=== PATIENT | female | born 2000 | race Caucasian/White ===

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

== ENCOUNTER 2022-11-20 09:04 | Day surgery (SDC) | payer MEDICAID ==
[2022-11-20 09:22] LABS: HCG URINE TEST NEGATIVE (NEGATIVE)
[2022-11-20] MEDS ORDERED: CEFAZOLIN 2 GM-D5W BAG** 2 GM/50 ML ML IV SCH (09:30)
[2022-11-20] MEDS ORDERED: Lactated Ringers 1,000 ML IV SCH (09:30)
[2022-11-20 09:31] VITALS: BP 107/68; PULSE 72; O2SAT 100
[2022-11-20] MEDS ORDERED: Lactated Ringers 1,000 ML IV ONE (09:35)
[2022-11-20] MEDS ORDERED: CEFAZOLIN 2 GM-D5W BAG** 2 GM/50 ML ML IV ONE (09:35)
[2022-11-20] MEDS ORDERED: Xylocaine-Mpf 2% 5 Ml Vial ONE (11:29)
[2022-11-20] MEDS ORDERED: Decadron 4 MG INJ ONE (11:29)
[2022-11-20] MEDS ORDERED: Zofran 4 MG/2 ML VIAL ONE (11:29)
[2022-11-20] MEDS ORDERED: DIPRIVAN 200 MG/20 ML IV ONE (11:30)
[2022-11-20] MEDS ORDERED: Versed 2 MG/2 ML Injection ONE (11:30)
[2022-11-20] MEDS ORDERED: SUBLIMAZE 100 MCG/2 ML ONE (11:30)
[2022-11-20] MEDS ORDERED: DEXMEDETOMIDINE 80 MCG/20ML-NS IV ONE (11:33)
== END 2022-11-20 12:15 | disposition home or self-care (01) ==
LOC: SDC 09:04
PROVIDERS: ATTEND Obstetrics & Gynecology
DX: Z53.8 Procedure and treatment not carried out for other reasons (principal)
CPT/HCPCS: 81025; J0690; J1100; J2250; J2405; J2704; J3010

== ENCOUNTER 2023-11-28 17:46 | Emergency (ER) | payer BC, MEDICAID ==
[2023-11-28 18:03] VITALS: TEMP 98.9; O2SAT 97
[2023-11-28 18:15] LABS: BASOPHIL % 0.3 % (0.0-0.4); Basophil (Absolute #) 0.04 x10^3/uL (0-0.4); Eosinophil % 0.1 % (0.00-5.0); Eosinophil (Absolute #) 0.01 x10^3/uL (0-0.5); Hematocrit 41.3 % (35-47); Hemoglobin 14.2 g/dL (12.0-16.0); IMMATURE GRAN # 0.05 x10^3u/L (0.00-0.03); IMMATURE GRAN % 0.3 % (0.00-0.4); Lymphocyte (Absolute #) 1.16 x10^3/uL (1.0-4.6); Lymphocytes % 7.9 % (24.0-44.0); Mean Cell Volume 90.8 fL (78-100); Mean Corpuscular Hemoglobin 31.2 pg (26-32); Mean Corpuscular Hgb Concent. 34.4 g/dL (32-36); Mean Platelet Volume 11.6 fL (7.5-11.0); Monocyte (Absolute #) 0.79 x10^3/uL (0.0-1.3); Monocytes % 5.4 % (0.0-12.0); Platelet Count 413 x10^3/uL (150-450); Red Blood Count 4.55 x10^6/uL (4.1-5.4); Red Cell Distribution Width 11.9 % (11.5-14.0); White Blood Count 14.8 x10^3/uL (4.0-10.5)
[2023-11-28 18:16] LABS: HCG URINE TEST NEGATIVE (NEGATIVE)
[2023-11-28] MEDS ORDERED: Zofran 4 MG/2 ML VIAL ONE (18:18)
[2023-11-28] MEDS ORDERED: Sodium Chloride 0.9% 1000 ML 1,000 ML ONE (18:18)
[2023-11-28] MEDS ORDERED: Pepcid 20 MG VIAL IV ONE (18:18)
--- NOTE | 2023-11-28 18:20 | ERPHSYRPT ---
- History of Present Illness Time Seen by Provider: 11/28/23 17:51 Historian: patient Exam Limitations: no limitations Patient Subjective Stated Complaint: Vomiting Triage Nursing Assessment: Patient ambulated back to ED and transferred self to bed. Patient A+O X3. Patient's skin pink, warm and dry. Patient complains of N/V and abdominal pain on and off since this past saturday. Patient currently denies pain, but states the pain gets worse when she eats of drinks anything. Abdomen soft and round with BS X 4. Physician History: 23-year-old female presented in the ER with complaint of off-and-on abdominal pain with nausea vomiting for the last 3 days. Patient reports multiple episodes of nonprojectile, nonbilious vomiting with no hematemesis. Reports associated epigastric and right upper quadrant pain. Concerned about her gallbladder issues which she had in the past. Patient denies any fever or chills. Not able to hold much down and feels weak fatigued tired and dehydrated. Does report smoking/vaping marijuana Allergies/Adverse Reactions: Latex, Natural Rubber Allergy (Mild, Verified 11/28/23 17:54) Hives and itching Hx Influenza Vaccination/Date Given: No Hx Pneumococcal Vaccination/Date Given: No Immunizations Up to Date: Yes Travel Risk - International Travel Have you traveled outside of the country in past 3 weeks: No - Emerging Infectious Disease Are you exhibiting symptoms associated with any current EIDs: No - Review of Systems Constitutional: No Symptoms Ears, Nose, & Throat: No Symptoms Respiratory: No Symptoms Cardiac: No Symptoms Abdominal/Gastrointestinal: Abdominal Pain, Nausea, Vomiting Genitourinary Symptoms: No Symptoms Musculoskeletal: No Symptoms Skin: No Symptoms Neurological: No Symptoms Psychological: No Symptoms Endocrine: No Symptoms Hematologic/Lymphatic: No Symptoms - Past Medical History Pertinent Past Medical History: Yes Neurological History: No Pertinent History ENT History: No Pertinent History Cardiac History: No Pertinent History Respiratory History: No Pertinent History Endocrine Medical History: No Pertinent History Musculoskeletal History: No Pertinent History GI Medical History: No Pertinent History History: No Pertinent History Psycho-Social History: No Pertinent History Female Reproductive Disorders: Abnormal Uterine Bleeding Other Medical History: PRECLAMPSIA - Past Surgical History Past Surgical History: Yes Neuro Surgical History: No Pertinent History Cardiac: No Pertinent History Respiratory: No Pertinent History Gastrointestinal: Appendectomy Genitourinary: No Pertinent History Musculoskeletal: No Pertinent History Female Surgical History: Section, Other Other Surgical History: ovary removed - Female History Hx Last Menstrual Period: 2 weeks ago Hx Now: (unkn) - Social History Smoking Status: Never smoker How long have you smoked: 4 Exposure to second hand smoke: No Drug Use: none - Nursing Vital Signs Nursing Vital Signs: Initial Vital Signs Temperature 98.9 F 11/28/23 17:56 Pulse Rate 86 11/28/23 17:56 Respiratory Rate 20 11/28/23 17:56 Blood Pressure 126/80 11/28/23 17:56 O2 Sat by Pulse Oximetry 97 11/28/23 17:56 Pain Scale Pain Intensity 0 - Physical Exam General Appearance: no apparent distress, alert Ears, Nose, Throat Exam: normal ENT inspection Neck Exam: normal inspection, supple, full range of motion Respiratory Exam: normal breath sounds, lungs clear Cardiovascular Exam: regular rate/rhythm, normal heart sounds Gastrointestinal/Abdomen Exam: soft, normal bowel sounds, tenderness (Epigastric and mild right upper quadrant tenderness. Negative Larsen sign.) Back Exam: normal inspection, normal range of motion Extremity Exam: normal inspection, normal range of motion Neurologic Exam: alert, oriented x 3, cooperative Skin Exam: normal color SpO2 Interpretation: normal SpO2: 97 O2 Delivery: Room Air Ordered Tests: Active Orders 24 hr Category Date Time Status IV Insertion STAT Care 11/28/23 18:05 Active NPO (ED) STAT Care 11/28/23 18:05 Active ABDOMEN AND PELVIS W CONTRAST [CT] Stat Exams 11/28/23 18:05 Taken CBC W DIFF Stat Lab 11/28/23 18:00 Completed CMP Stat Lab 11/28/23 18:00 Completed CULTURE,URINE Stat Lab 11/28/23 18:05 Received HCG QUALITATIVE, URINE Stat Lab 11/28/23 18:05 Completed LIPASE Stat Lab 11/28/23 18:00 Completed UA W/RFX UR CULTURE Stat Lab 11/28/23 18:05 Completed Medication Summary Discontinued Medications Generic Name Dose Route Start Last Admin Trade Name Freq PRN Reason Stop Dose Admin Cephalexin HCl 500 mg 11/28/23 19:46 Cephalexin Mh500 Mg Capsule PO 11/28/23 19:47 STAT ONE Famotidine 20 mg 11/28/23 18:05 11/28/23 18:21 Famotidine 20 Mg/1 Vial IV 11/28/23 18:06 20 mg STAT ONE Administration Famotidine Confirm 11/28/23 18:18 Famotidine 20 Mg/1 Vial Administered 11/28/23 18:19 Dose 20 mg IV .STK-MED ONE Sodium Chloride 1,000 mls @ 999 mls/hr 11/28/23 18:05 11/28/23 18:21 Sodium Chloride 0.9% 1000 Ml IV 11/28/23 19:05 999 mls/hr .Q1H1M STA Administration Sodium Chloride Confirm 11/28/23 18:18 Sodium Chloride 0.9% 1000 Ml Administered 11/28/23 18:19 Dose 1,000 mls @ ud .ROUTE .STK-MED ONE Ondansetron HCl 4 mg 11/28/23 18:05 11/28/23 18:21 Ondansetron Hcl 4 Mg/2 Ml Vial IV 11/28/23 18:06 4 mg STAT ONE Administration Ondansetron HCl Confirm 11/28/23 18:18 Ondansetron Hcl 4 Mg/2 Ml Vial Administered 11/28/23 18:19 Dose 4 mg .ROUTE .STK-MED ONE Lab/Rad Data: Laboratory Result Diagrams 11/28/23 18:00 11/28/23 18:00 Laboratory Results 11/28/23 11/28/23 11/28/23 Range/Units 18:05 18:05 18:00 WBC (4.0-10.5) x10^3/uL RBC (4.1-5.4) x10^6/uL Hgb (12.0-16.0) g/dL Hct (35-47) % MCV (78-100) fL MCH (26-32) pg MCHC (32-36) g/dL RDW (11.5-14.0) % Plt Count (150-450) x10^3/uL MPV (7.5-11.0) fL Gran % (36.0-66.0) % Immature Gran % (Auto) (0.00-0.4) % Nucleat RBC Rel Count (0.00-0.1) % Eos # (Auto) (0-0.5) x10^3/uL Immature Gran # (Auto) (0.00-0.03) x10^3u/L Absolute Lymphs (auto) (1.0-4.6) x10^3/uL Absolute Monos (auto) (0.0-1.3) x10^3/uL Absolute Nucleated RBC (0.00-0.01) x10^3u/L Lymphocytes % (24.0-44.0) % Monocytes % (0.0-12.0) % Eosinophils % (0.00-5.0) % Basophils % (0.0-0.4) % Absolute Granulocytes (1.4-6.9) x10^3/uL Basophils # (0-0.4) x10^3/uL Sodium 139 (135-145) mmol/L Potassium 3.3 L (3.5-5.1) mmol/L Chloride 103 (98-107) mmol/L Carbon Dioxide 26 (22-30) mmol/L Anion Gap 13.9 (5-15) MEQ/L BUN 10 (7-17) mg/dL Creatinine 0.61 (0.52-1.04) mg/dL Estimated GFR 130.4 ML/MIN Glucose 117 H (74-106) mg/dL Calcium 9.5 (8.4-10.2) mg/dL Total Bilirubin 1.30 (0.2-1.3) mg/dL AST 20 (14-36) U/L ALT 15 (0-35) U/L Alkaline Phosphatase 71 (38-126) U/L Serum Total Protein 8.0 (6.3-8.2) g/dL Albumin 5.1 H (3.5-5.0) g/dL Lipase 157 (23-300) U/L Urine Color Yellow (Yellow) Urine Appearance Clear (Clear) Urine pH 7.5 (4.6-8.0) Ur Specific [place] 1.025 (1.005-1.030) Urine Protein 30 (Negative) Urine Glucose (UA) Negative (Negative) mg/dL Urine Ketones Trace A (Negative) Urine Blood Negative (Negative) Urine Nitrite Negative (Negative) Urine Bilirubin Negative (Negative) Urine Urobilinogen 1.0 A (0.2) mg/dL Ur Leukocyte Esterase Trace A (Negative) U Hyaline Cast (Auto) NONE SEEN (0-2) /LPF Urine Microscopic RBC 0-2 (0-5) /HPF Urine Microscopic WBC 6-10 A (0-5) /HPF Ur Epithelial Cells Few (None Seen) /HPF Urine Bacteria None Seen (None Seen) /HPF Urine Culture Reflexed YES (NO) Urine HCG, Qual NEGATIVE (NEGATIVE) 11/28/23 Range/Units 18:00 WBC 14.8 H (4.0-10.5) x10^3/uL RBC 4.55 (4.1-5.4) x10^6/uL Hgb 14.2 (12.0-16.0) g/dL Hct 41.3 (35-47) % MCV 90.8 (78-100) fL MCH 31.2 (26-32) pg MCHC 34.4 (32-36) g/dL RDW 11.9 (11.5-14.0) % Plt Count 413 (150-450) x10^3/uL MPV 11.6 H (7.5-11.0) fL Gran % 86.0 H (36.0-66.0) % Immature Gran % (Auto) 0.3 (0.00-0.4) % Nucleat RBC Rel Count 0.0 (0.00-0.1) % Eos # (Auto) 0.01 (0-0.5) x10^3/uL Immature Gran # (Auto) 0.05 H (0.00-0.03) x10^3u/L Absolute Lymphs (auto) 1.16 (1.0-4.6) x10^3/uL Absolute Monos (auto) 0.79 (0.0-1.3) x10^3/uL Absolute Nucleated RBC 0.00 (0.00-0.01) x10^3u/L Lymphocytes % 7.9 L (24.0-44.0) % Monocytes % 5.4 (0.0-12.0) % Eosinophils % 0.1 (0.00-5.0) % Basophils % 0.3 (0.0-0.4) % Absolute Granulocytes 12.70 H (1.4-6.9) x10^3/uL Basophils # 0.04 (0-0.4) x10^3/uL Sodium (135-145) mmol/L Potassium (3.5-5.1) mmol/L Chloride (98-107) mmol/L Carbon Dioxide (22-30) mmol/L Anion Gap (5-15) MEQ/L BUN (7-17) mg/dL Creatinine (0.52-1.04) mg/dL Estimated GFR ML/MIN Glucose (74-106) mg/dL Calcium (8.4-10.2) mg/dL Total Bilirubin (0.2-1.3) mg/dL AST (14-36) U/L ALT (0-35) U/L Alkaline Phosphatase (38-126) U/L Serum Total Protein (6.3-8.2) g/dL Albumin (3.5-5.0) g/dL Lipase (23-300) U/L Urine Color (Yellow) Urine Appearance (Clear) Urine pH (4.6-8.0) Ur Specific [place] (1.005-1.030) Urine Protein (Negative) Urine Glucose (UA) (Negative) mg/dL Urine Ketones (Negative) Urine Blood (Negative) Urine Nitrite (Negative) Urine Bilirubin (Negative) Urine Urobilinogen (0.2) mg/dL Ur Leukocyte Esterase (Negative) U Hyaline Cast (Auto) (0-2) /LPF Urine Microscopic RBC (0-5) /HPF Urine Microscopic WBC (0-5) /HPF Ur Epithelial Cells (None Seen) /HPF Urine Bacteria (None Seen) /HPF Urine Culture Reflexed (NO) Urine HCG, Qual (NEGATIVE) - Progress Progress: improved Progress Note: 11/28/23 19:57 23-year-old is evaluated in the ER for upper abdominal pain with vomiting. She is given fluids and symptomatic treatment, on reevaluation she is feeling much better. Workup show white count 14, fairly unremarkable chemistries. Normal lipase and liver enzymes. CT abdomen pelvis per preliminary report is negative for any acute intra-abdominal pelvic findings. Patient has an element of UTI and started on Keflex. Patient has Zofran at home, I have offered her Phenergan and Reglan but she does not want and will continue with Zofran. Part of her symptoms could be secondary to marijuana use, counseled on vaping/marijuana use. Discussed signs symptoms of worsening needing return to ER which she seems understanding. Stable for discharge. 11/28/23 19:58 Counseled pt/family regarding: lab results, diagnosis, need for follow-up, rad results, smoking cessation Medical Desision Making - Diagnostic Testing Diagnostic test were ordered, analyzed, and reviewed by me: Yes Radiological Interpretation: Reviewed by me, Teleradiologist Report - Risk of complications The pt has a mod risk of morbidity or mortality based on: Need for prescription drug management - Departure Departure Disposition: Home Clinical Impression: Nausea & vomiting, Upper abdominal pain, UTI (urinary tract infection) Condition: Stable Critical Care Time: No Referrals: [facility]ENDER [Primary Care Provider] - Follow up with PCP 1 day Instructions: Nausea and Vomiting, Adult ED, Abdominal Pain, Adult ED Additional Instructions: Take Tylenol and Zofran as needed. Follow-up with primary care for reeva luation. Do not smoke marijuana. Return to ER for intractable abdominal pain/vomiting/fever chills etc. Prescriptions: Cephalexin Mh 500 mg [Keflex 500 mg] 500 mg PO TID #21 cap
[2023-11-28] MEDS: Sodium Chloride 0.9% 1000 ML 1,000 ML IV STA (18:21)
[2023-11-28] MEDS: Pepcid 20 MG VIAL IV ONE (18:21)
[2023-11-28] MEDS: Zofran 4 MG/2 ML VIAL IV ONE (18:21)
[2023-11-28 18:22] LABS: Appearance Clear (Clear); Bacteria None Seen /HPF (None Seen); Bilirubin Negative (Negative); Blood Negative (Negative); Epithelial Cells Few /HPF (None Seen); Glucose, Urine Negative (Negative); Hyaline Casts NONE SEEN /LPF (0-2); Ketones Trace (Negative); Leukocyte Esterase Trace (Negative); Nitrite Negative (Negative); Ph 7.5 (4.6-8.0); Protein,Urine Dip 30 (Negative); RBC 0-2 /HPF (0-5); Specific Gravity 1.025 (1.005-1.030)
[2023-11-28 18:28] LABS: ALBUMIN 5.1 g/dL (3.5-5.0); ANION GAP 13.9 MEQ/L (5-15); BILIRUBIN,TOTAL 1.3 mg/dL (0.2-1.3); Calcium 9.5 mg/dL (8.4-10.2); Creatinine 1 0.61 mg/dL (0.52-1.04); EST GLOMERULAR FILTRATION RATE 130.4 ML/MIN; Potassium 3.3 mmol/L (3.5-5.1)
[2023-11-28 18:32] LABS: ADD URINE CULTURE? YES (NO)
[2023-11-28] MEDS ORDERED: KEFLEX 500 MG ONE (20:24)
[2023-11-28] MEDS: KEFLEX 500 MG PO ONE (20:25)
[2023-11-28 20:27] VITALS: RESP 18
[2023-11-28 20:28] VITALS: BP 112/71; PULSE 69
--- NOTE | 2023-11-29 08:33 | XRAY ---
Indication: Upper abdominal pain. Vomiting. Multiple contiguous axial images obtained through the abdomen and pelvis using 80 cc Isovue 370 contrast. Comparison: None Lung bases clear. Heart not enlarged. Noncontrasted stomach and bowel loops appear nonobstructed. Appendix not visualized. No free fluid/air. Remaining liver, gallbladder, pancreas, spleen, adrenal glands, kidneys, ureters, bladder, uterus, and aorta are unremarkable. No pathologic retroperitoneal lymphadenopathy. Osseous structures intact. No ventral or inguinal hernias. Impression: CT abdomen/pelvis without contrast exam is negative.
== END 2023-11-28 20:42 | disposition home or self-care (01) ==
LOC: ED 17:46
DX: N39.0 Urinary tract infection, site not specified (principal); R11.2 Nausea with vomiting, unspecified; R10.11 Right upper quadrant pain; R10.13 Epigastric pain; R53.1 Weakness
CPT/HCPCS: 36000; 36415; 74177; 80053; 81001; 81025; 83690; 85025; 87086; 96374; 99284; J2405; A9270-GY